=== PATIENT | female | born 2000 | race Caucasian/White ===

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

== ENCOUNTER 2022-12-10 22:41 | Emergency (ER) | payer MEDICAID, SELFPAY ==
[2022-12-10 22:48] VITALS: BP 129/74; PULSE 109; RESP 18; TEMP 36.5; O2SAT 100
--- NOTE | 2022-12-10 22:59 | ED.GENADUL_ITS ---
Discharge Plan Disposition Patient Disposition: Home Condition: Good Discharge Details Clinical Impression: Cellulitis of right lower extremity Primary Care Provider: Kathryn,Local ED Provider: Maude Danielle Home Meds and New Rx's Prescriptions: Continued norgestimate-ethinyl estradiol [Sprintec (28)] 0.25-35 mg-mcg tablet 1 tab PO DAILY Qty: 84 3RF albuterol sulfate 90 mcg/actuation Hfa Aerosol Inhaler 2 puff INHALATION DIRECTED PRN trazodone 50 mg Tablet 50 mg PO HS Discharge Instructions Instructions: Cellulitis (ED) Additional Instructions: At this time you have evidence of cellulitis infection of the skin on your right lower leg. The infection will likely improve with the antibiotic that you have been given and the prescription has been sent to your pharmacy. Please take this as directed. That being said there is always a chance that this could worsen. Please watch closely for spreading of the redness, worsening systemic symptoms of fever, chills or fatigue, or worsening pain. Please contact the surgery offices tomorrow for close follow-up. If you notice any worsening of your symptoms, or any new symptoms such as vomiting, diarrhea, fever, chills, shortness of breath, chest pain, numbness, weakness, or fainting , please return immediately to the emergency department for reevaluation. Please follow up with your primary care provider as soon as possible for reassessment and reevaluation. As always, it was a pleasure participating in your medical care today. Referrals: Bhargav Rivera MD [ CONSULTING PHYSICIAN] - Richmond Madrid MD [ [facility]] - Collin Sy MD [ [facility]] - Nilo Santo MD [ [facility]] - Discharge Data Discharge Date/Time-TO BE ENTERED AT DEPARTURE: 12/11/22 03:20 Medical Decision Making <MEGGAN Forbes - Last Filed: 12/19/22 20:07> Patient is a pleasant 22-year-old female presenting today with chief complaint of right knee pain and erythema. She reports that she injured her knee about 3 days ago when she caught it on a door in her kitchen. States that she has been trying to keep the wound clean since then. However, approximately 1 hour prior to arrival she noted a sudden onset of discomfort, swelling and warmth. States that she has been feeling febrile this afternoon but this too is a new finding for her. No previous surgeries or hardware in the knee. Denies being . Denies having infection like this historically. On exam, patient appears nontoxic. She is hemodynamically stable. She is slightly tachycardic heart rate of 109. Exam of the right lower extremity significant for erythematous right knee, particularly along the medial joint line more so than the lateral although she does have some ridging over to this area as well. She does have a small effusion. No palpable area of fluctuance. No palpable crepitus. She is 2+ distal pulses. Intact sensation. Small abrasion noted along the medial aspect of the knee, no signficantly deep wound. is able to extend lacking approximately 10 degrees, flexion to 90 With the patient's quick onset and significant discomfort as well as her fevers at home, the concerned that she may have developed necrotizing fasciitis, particularly as this developed over 1 hour. Patient does have palpable lymphadenopathy in the groin. The area of erythema does not allow for safe drainage of the knee for further evaluation of septic joint at this time. She does have pain that spreads proximally and in of the thigh. We will treat for worst-case scenario. She did take Tylenol and ibuprofen prior to arrival. Will obtain imaging to evaluate for possible necrotizing fasciitis or complicating joint infection such as abscess. Discussed this plan with the patient who is in agreement. Labs reviewed. No leukocytosis. Stable H&H. Her ESR slightly elevated at 26, CRP elevated at 2.03. Lactate within normal limits. Procalcitonin is pending. Patient going now for CT imaging. POC negative A the end of my shift, care transition to Dr. Fontaine. Imaging and disposition pending. <Candido Fontaine, DO - Last Filed: 12/11/22 02:19> Patient is a pleasant 22-year-old female presenting today with chief complaint of right knee pain and erythema. She reports that she injured her knee about 3 days ago when she caught it on a door in her kitchen. States that she has been trying to keep the wound clean since then. However, approximately 1 hour prior to arrival she noted a sudden onset of discomfort, swelling and warmth. States that she has been feeling febrile this afternoon but this too is a new finding for her. No previous surgeries or hardware in the knee. Denies being . Denies having infection like this historically. On exam, patient appears nontoxic. She is hemodynamically stable. She is slightly tachycardic heart rate of 109. Exam of the right lower extremity significant for erythematous right knee, particularly along the medial joint line more so than the lateral although she does have some ridging over to this area as well. She does have a small effusion. No palpable area of fluctuance. No palpable crepitus. She is 2+ distal pulses. Intact sensation. Small abrasion noted along the medial aspect of the knee, no signficantly deep wound. is able to extend lacking approximately 10 degrees, flexion to 90 With the patient's quick onset and significant discomfort as well as her fevers at home, the concerned that she may have developed necrotizing fasciitis, particularly as this developed over 1 hour. Patient does have palpable lymphadenopathy in the groin. The area of erythema does not allow for safe drainage of the knee for further evaluation of septic joint at this time. She does have pain that spreads proximally and in of the thigh. We will treat for worst-case scenario. She did take Tylenol and ibuprofen prior to arrival. Will obtain imaging to evaluate for possible necrotizing fasciitis or complicating joint infection such as abscess. Discussed this plan with the patient who is in agreement. Labs reviewed. No leukocytosis. Stable H&H. Her ESR slightly elevated at 26, CRP elevated at 2.03. Lactate within normal limits. Procalcitonin is pending. Patient going now for CT imaging. POC negative A the end of my shift, care transition to Dr. Fontaine. Imaging and disposition pending. 2:07 AM Case was signed out to me by my colleague Maude Moreira. Please refer to HPI, physical exam, assessment and plan. On reassessment patient is feeling much better. Blood pressure normal, heart rate normal, no evidence of sepsis clinically. She is afebrile. Laboratory work-up demonstrates no white count, bandemia or left shift. ESR is minimally elevated at 26, CRP is mildly elevated at 2, procalcitonin is normal, electrolytes normal, lactate normal. CT scan r esults have returned and shows evidence of mild subcutaneous fat stranding in the prepatellar location, there is an ill-defined hypoattenuation of intramuscular fluid collection which cannot be measured. No evidence of gas. I did contact the radiologist and discussed this with them further personally, they mention that they do not see any evidence of abscess, or definable fluid collection but do see some slight changes in the musculature. No clear evidence of necrotizing fasciitis whatsoever. I did contact the surgeon as well, Dr. Rivera. She did review the images and she also does not see any evidence of fluid collection or symptoms on imaging suggestive of necrotizing fasciitis. I did go and reassess the patient myself. Reassessment shows evidence of erythema around the medial aspect of the knee which has not past the marked borders performed by Maude Moreira. There is a clear distinction of the mild swelling mild pain in the distal aspect of the quadriceps, and clearly not in the knee itself. Patient is able to bend and flex the knee and does not demonstrate pain in the joint, she is able to describe this very clearly. The pain seems to be located in the muscle itself. Without being said the pain is improved, the patient feels well and stable otherwise. Repeat tactile exam continues to show no evidence of subcutaneous crepitus. Pain is not out of proportion. At this time the patient does not show clinical evidence to suggest necrotizing fasciitis, intramuscular abscess requiring drainage, or sepsis. However she does demonstrate evidence of mild cellulitis and what I feel is likely the very beginnings of an early infection. She is already being given vancomycin, Zosyn and clindamycin by Maude. I do not see an indication at this time for admission but I do feel that at this time both clinically and from a laboratory and work- up perspective she is stable clinically at this time for discharge but requires close and prompt follow-up. I discussed this with Dr. Rivera and she agrees with plan for close follow-up in the clinic. I had a very long discussion with the patient regarding signs and symptoms that would represent systemic illness, worsening infection, and we also discussed symptoms that could represent necrotizing fasciitis, even though she does not show any clinical symptomatology of that at this time. I did discuss continued observation versus discharge, and states clearly that she would prefer to go home at this time. Patient will be discharged. We will give a prescription for clindamycin as well as a small bottle for current dose now. Discussed red flags for which to return. I have extensively reviewed the treatment plan and discharge instructions with the patient. I have addressed all patient concerns at this time. The patient was made aware of what symptoms to monitor for that would warrant a return to the emergency department. Discussed the plan with the patient, they demonstrate verbal understanding and agreement with our assessment and plan at this time. The documentation in this chart was dictated using Echo[employer] dictation software. Please excuse any dictation errors. FINDINGS: Bones/joints: Normal. No acute fracture or dislocation. Soft tissues: There is mild subcutaneous fat stranding in the prepatellar loc ation, with evidence of skin thickening. Within the medial aspect of the visualized quadriceps muscu lature there is an illdefined hypoattenuating intramuscular fluid collection which cannot be accurately measured. The possibility of intramuscular abscess cannot be excluded. IMPRESSION: 1. There is mild subcutaneous fat stranding in the prepatellar location, with evidence of skin thickening. 2. Within the medial aspect of the visualized quadriceps musculature there is an ill-defined hypoattenuating intramuscular fluid collection which cannot be accurately measured. The possibility of intramuscular abscess cannot be excluded. Thank you for allowing us to participate in the care of your patient. Dictated and Authenticated by: Willam Mccrary MD 12/11/2022 1:25 AM Eastern Time ([place] & [place]) HPI <MEGGAN Forbes - Last Filed: 12/19/22 20:07> General Date/Time Provider Initiated Documentation: 12/10/22 22:59 . Limitations to Documentation: no limitations . Information obtained by: patient and RN notes reviewed . History of Present Illness 22 year old F presents to the emergency department with the chief complaint of swelling, erythema, warmth, pain right knee, described as severe, with intensity rated at 7. Quality is described as aching, and is localized to the right and lower extremity. Patient reports no radiation. Patient started experiencing this hour(s) (initial injury. 3 days ago, states that swelling and erythema started fairly rrarpidly) and it has been constant. Immobilization improves symptom(s), Movement worsens symptoms . Patient notes fever/chills, malaise and rash; denies cough, diaphoresis, nausea/vomiting, shortness of breath and weakness. Patient did receive the following treatments prior to arrival, NSAID Related Data Home Medications Medication Instructions Recorded Confirmed trazodone 50 mg tablet 50 mg PO HS 01/22/20 11/02/20 albuterol sulfate 90 mcg/actuation 2 puff inhalation DIRECTED PRN 04/01/20 09/12/20 aerosol inhaler norgestimate 0.25 mg-ethinyl 1 tab PO DAILY #84 tabs 09/12/20 09/12/20 estradiol 35 mcg tablet (Sprintec (28)) Previous Rx's Medication Instructions Recorded norgestimate 0.25 mg-ethinyl 1 tab PO DAILY #84 tabs 09/12/20 estradiol 35 mcg tablet (Sprintec (28)) Allergies Allergy/AdvReac Type Severity Reaction Status Date / Time No Known Allergies Allergy Verified 04/01/20 19:46 General Stated Complaint: Orthopedic CHEL: 3 Review of Systems <MEGGAN Forbes - Last Filed: 12/19/22 20:07> Constitutional Constitutional: Reports as per HPI, Denies headache(s) and Denies weakness ENT Ears, Nose, Mouth, and Throat: Denies headache(s) Cardiovascular Cardiovascular: Reports as per HPI Respiratory Respiratory: Reports as per HPI and Denies cough Musculoskeletal Musculoskeletal: Reports as per HPI and Denies tingling Integumentary/Breasts Skin/Breast: Reports as per HPI Neurologic Neurologic: Reports as per HPI, Denies headache(s), Denies tingling, Denies par esthesias and Denies weakness PFS <MEGGAN Forbes - Last Filed: 12/19/22 20:07> All Active Problems (Updated 12/11/22 @ 02:15 by Candido Fontaine DO) Cellulitis of right lower extremity (Acute) Fatigue (Acute) Dysuria (Acute) Contraception (Acute) Frequent headaches (Acute 12/15/15) Medical History (Updated 12/11/22 @ 02:15 by Candido Fontaine DO) Contraception requests Nexplanon. Depression On Fluoxetine Headache Family History Father Hyperlipidemia Hypertension Mother Depression Social History Smoking/Tobacco Use Status: Current every day Tobacco Type: cigarettes Smoking risk assessment performed?: Yes Alcohol Intake: never Drug use: Never Substance use type: does not use Do you feel safe at home: Yes Do you feel safe in your relationship?: Yes Female Reproductive History Menstrual control method: condoms History History 0 Para Hx # Term Pregnancies Multiple births Hx # Pregnancies Ectopic pregnancies AB induced Hx Number of Living Children AB spontaneous Exam <MEGGAN Forbes - Last Filed: 12/19/22 20:07> Const General: cooperative, healthy appearing, comfortable, no acute distress, well developed and well groomed Nutritional Appearance: average body habitus and well nourished Orientation: alert and awake Resp Effort & Inspection: normal respiratory effort, able to speak in complete sentences and no respiratory distress Cardio Rate: regular rate Rhythm: regular rhythm Skin General skin exam: erythema and no fluctuance Trauma: abrasion Neuro General: patient alert and patient awake Cognition: normal cognition Speech: speech normal Gait: normal gait Motor: muscle tone normal throughout Sensory Exam: no sensory deficits noted Extrem Knee images: 1. ARea of erytehma, warmth, swelling. Small effusion noted. Limited flexion bu tfull extension. 2+ distal pulses, sensation intact. Full ROM of ankle, toes. No calf pain, no palpable cord, negative Hommans. Small abrasion. No surrrounding ecchymosis. Psych Appearance: grossly normal and well kempt Mental Status: mental status grossly normal Speech and Movement: speech and movement normal Course <MEGGAN Forbes - Last Filed: 12/19/22 20:07> Vital Signs Vital signs: Vital Signs Temperature 36.5 C 12/10/22 22:48 Pulse 109 H 12/10/22 22:48 Respiratory Rate 18 12/10/22 22:48 Blood Pressure 129/74 12/10/22 22:48 Pulse Oximetry 100 12/10/22 22:48 Temperature 36.5 C 12/10/22 22:48 Pulse 109 H 12/10/22 22:48 Respiratory Rate 18 12/10/22 22:48 Respiratory Effort 12/10/22 22:56 Blood Pressure 129/74 12/10/22 22:48 Blood Pressure Position Sitting 12/10/22 22:48 Pulse Oximetry 100 12/10/22 22:48 Oxygen Delivery Method Room Air 12/10/22 22:48 Oxygen Flow Rate 0 12/10/22 22:48 Pain Level 7 12/10/22 22:48
--- NOTE | 2022-12-10 23:15 | DI.CT_ITS ---
Exam(s) CT LOWER EXTREMITY RT W EXAM: CT LOWER EXTREMITY RT W CLINICAL HISTORY: right knee infection. TECHNIQUE: Imaging Protocol: Axial computed tomography images with coronal and sagittal reformatted images were created and reviewed. CONTRAST MATERIAL: Intravenous: Omnipaque 350. Contrast Volume: 100 ML COMPARISON: No exams were available for comparison FINDINGS: Bones: The osseous structures and articular surfaces are intact. Bony alignment is satisfactory. N o cellulitic or osteomyelitic changes are identified. There is no evidence of joint space narrowing or cystic degeneration seen. No lytic or sclerotic lesions are identified. Soft Tissues: There is fat stranding in the prepatellar soft tissues. There is mild skin thickening note is in this region. There is an area of decreased attenuation in the quadriceps musculature samaria cent to the patella. No definite wall enhancement is seen but an abscess cannot be entirely excluded . Enhancement: No abnormal enhancement is identified. IMPRESSION: 1. Mild fat stranding and skin thickening in the prepatellar soft tissues. This may represent a cell ulitis. 2. Area of decreased attenuation in the quadriceps muscle adjacent to the patella. A small intramusc ular abscess cannot be excluded. RADIATION DOSE DELIVERED: 232.46mGy.cm Total DLP 232.46mGy.cm Total DLP DATA REPOSITORY: All CT scans at this facility are submitted to the National Radiology Data Registry (NRDR) Dose Index Registry (DIR) with the [employer] ([employer]). RADIATION OPTIMIZATION: All CT scans at this facility use at least one of these dose optimization te chniques: automated exposure control; mA and/or kV adjustment per patient size (includes targeted exa ms where dose is matched to clinical indication); or iterative reconstruction.
[2022-12-11 00:09] LABS: Lactate 0.9 mmol/L (0.6-1.4)
[2022-12-11] MEDS: PIPERACILLIN/TAZO 3.375 GM in Normal Saline 50 ML IVPB (00:15)
[2022-12-11 00:17] LABS: Abs Immature Grans 0.02 10^3/uL (0.0-0.06); Absolute Basophil Count 0.03 10^3/uL (0.0-0.2); Absolute Eosinophil Count 0.29 10^3/uL (0.0-0.7); Absolute Lymphocyte Count 2.76 10^3/uL (1.2-3.4); Absolute Monocyte Count 0.83 10^3/uL (0.1-0.8); Absolute Neutrophil Count 5.23 10^3/uL (1.2-6.7); Basophils % 0.3; Eosinophils % 3.2; HCT 44.7 % (36.0-46.0); Immature Grans % 0.2; Lymphocytes % 30.1; MCH 31.6 pg (27.0-33.0); MCHC 33.6 % (32.0-36.0); MCV 94 fL (80-95); MPV 9.6 fL (8.0-11.0); Monocytes % 9.1; Neutrophils % 57.1; Platelet Count 233 10^3/uL (130-400); RBC 4.75 10^6/uL (3.93-5.22); RDW 11.9 % (11.7-14.6); RDW-SD 41.1 fL; WBC 9.16 10^3/uL (4.4-10.8)
[2022-12-11 00:20] LABS: ESR 26 mm/hr (0-20)
[2022-12-11 00:27] LABS: ALT 22 U/L (14-59); AST 22 U/L (15-37); Albumin 3.8 g/dL (3.4-5.0); Alkaline Phosphatase 84 U/L (46-116); BUN 12 mg/dL (7-18); Bilirubin, Total 0.3 mg/dL (0.2-1.0); C-Reactive Protein 2.03 mg/dL (0.0-0.3); CREATININE 0.7 mg/dL (0.55-1.02); Calcium 9.3 mg/dL (8.5-10.1); Chloride 100 mmol/L (98-107); Estimated GFR 126.11 (mL/min/1.73m2); Glucose 92 mg/dL (74-106); Potassium 3.6 mmol/L (3.5-5.1); Sodium 139 mmol/L (136-145); Total Protein 7.8 g/dL (6.4-8.2)
[2022-12-11] MEDS: Normal Saline 1,000 ML 1000 ML IV (00:39)
[2022-12-11] MEDS: Omnipaque 350 MG/ML 100 ML BTL IJ (00:55)
[2022-12-11 00:59] LABS: Procalcitonin < 0.1 ng/mL
[2022-12-11] MEDS: Normal Saline - Diluent 50 ML VIAL IJ (01:02)
[2022-12-11] MEDS: CLINDAMYCIN 600 MG/50 ML BAG 100 MG IVPB (01:19)
[2022-12-11] MEDS: VANCOMYCIN 750 MG in Normal Saline 250 ML 166.6666 MG IVPB (01:20)
--- NOTE | 2022-12-11 01:25 | DI.VRAD_ITS ---
Addendum created by Willam Mccrary MD on 12/11/2022 1:34:43 AM EST: Findings were discussed with Dr. Fontaine at 12/11/2022 1:34 AM EST. Initial report created on 12/11/2022 1:25:16 AM EST: PROCEDURE INFORMATION: Exam: CT Right Lower Extremity With Contrast, Knee Exam date and time: 12/11/2022 12:53 AM Age: 22 years old Clinical indication: Swelling or effusion of joint and other: Right knee infection TECHNIQUE: Imaging protocol: CT of the Right lower extremity with intravenous contrast was performed. Exam focused on the knee. Radiation optimization: All CT scans at this facility use at least one of these dose optimization techniques: automated exposure control; mA and/or kV adjustment per patient size (includes targeted exams where dose is matched to clinical indication); or iterative reconstruction. Contrast material: OMNI 350; Contrast volume: 100 ml; Contrast route: INTRAVENOUS (IV); COMPARISON: No relevant prior studies available. FINDINGS: Bones/joints: Normal. No acute fracture or dislocation. Soft tissues: There is mild subcutaneous fat stranding in the prepatellar location, with evidence of skin thickening. Within the medial aspect of the visualized quadriceps musculature there is an ill-defined hypoattenuating intramuscular fluid collection which cannot be accurately measured. The possibility of intramuscular abscess cannot be excluded. IMPRESSION: 1. There is mild subcutaneous fat stranding in the prepatellar location, with evidence of skin thickening. 2. Within the medial aspect of the visualized quadriceps musculature there is an ill-defined hypoattenuating intramuscular fluid collection which cannot be accurately measured. The possibility of intramuscular abscess cannot be excluded. Dictated and Authenticated by: Willam Mccrary MD. Ordering:ANALY Santoro MD
[2022-12-11 01:34] VITALS: BP 121/61; PULSE 85; RESP 18; TEMP 36.8; O2SAT 100
[2022-12-11] MEDS: Ketorolac 15 MG/ML VIAL IVP (02:27)
[2022-12-11 03:07] VITALS: BP 132/63; PULSE 78; RESP 16; TEMP 36.3; O2SAT 100
== END 2022-12-11 03:20 | disposition home or self-care (01) ==
PROVIDERS: Emergency Provider Physician Assistant
DX: L03.115 Cellulitis of right lower limb (principal); M25.561 Pain in right knee; S80.211A Abrasion, right knee, initial encounter; W22.03XA Walked into furniture, initial encounter; R50.9 Fever, unspecified
CPT/HCPCS: 80053; 81025; 84145; 85652; 87040; 87635; 96361; 96365; 96366; 96367; 96368; 96375; 99285; 73701; 83605; 85025; 86140; 99284; J1885; J2543; J3490

== ENCOUNTER 2023-06-18 17:44 | Emergency (ER) | payer MEDICAID, SELFPAY ==
[2023-06-18 18:10] VITALS: BP 131/80; PULSE 110; RESP 16; TEMP 36.5; O2SAT 95
[2023-06-18 18:13] LABS: Bilirubin Negative (Negative); Blood Trace-intact (Negative); Clarity Cloudy (Clear); Glucose Negative (Negative); Ketones Negative (Negative); Leukocyte Esterase Large (Negative); Nitrite Negative (Negative); pH 8.5 (5-8)
[2023-06-18 18:20] LABS: Bacteria Many HPF (Negative); C & S Indicated? Yes; Casts Negative LPF (Negative); Crystals Negative HPF (Negative); Epithelial Cells Few HPF (Negative); Mucus Trace (Negative); RBC 0-2 HPF (0-2); WBC 20-50 HPF (0-5)
== END 2023-06-18 19:40 | disposition left against medical advice (07) ==
LOC: ER 17:50
PROVIDERS: Emergency Provider Emergency Medicine
DX: Z53.21 Procedure and treatment not carried out due to patient leaving prior to being seen by health care provider (principal)
CPT/HCPCS: 81003; 81015; 87086

== ENCOUNTER 2023-07-13 05:05 | Emergency (ER) | payer MEDICAID, SELFPAY ==
[2023-07-13 05:11] VITALS: BP 109/54; PULSE 107; RESP 18; TEMP 36.3; O2SAT 98
--- NOTE | 2023-07-13 05:20 | ED.GENADUL_ITS ---
Discharge Plan Disposition Patient Disposition: Home Condition: Improving Discharge Details Clinical Impression: Avulsed toenail Primary Care Provider: None,None ED Provider: Eagle Layton Meds and New Rx's Prescriptions: Continued albuterol sulfate 90 mcg/actuation Hfa Aerosol Inhaler 2 puff INHALATION DIRECTED PRN Discharge Instructions Instructions: Nail Avulsion (ED) Discharge Data Discharge Date/Time-TO BE ENTERED AT DEPARTURE: 07/13/23 05:42 Discharge Physician: Eagle Layton Medical Decision Making Patient who sustained trauma to her foot with a ablation of her left fifth toe nail there is no laceration of the nailbed and she will be put on the dressing and discharged home HPI General Date/Time Provider Initiated Documentation: 07/13/23 05:20 . HPI Narrative: Patient presents emergency department after she tripped on the stairs and sustained a nail avulsion of her left pinky toe and bleeding Related Data Home Medications Medication Instructions Recorded Confirmed albuterol sulfate 90 mcg/actuation 2 puff inhalation DIRECTED PRN 04/01/20 06/18/23 aerosol inhaler Allergies Allergy/AdvReac Type Severity Reaction Status Date / Time No Known Allergies Allergy Verified 06/18/23 18:15 General Stated Complaint: Orthopedic CHEL: 3 Review of Systems Narrative: Review of Systems: Constitutional: No fevers, chills, sweats Eye: No recent visual problems ENT: No ear pain, nasal congestion, sore throat Respiratory: No shortness of breath, cough Cardiovascular: No Chest pain, palpitations, syncope Gastrointestinal: No nausea, vomiting, diarrhea Genitourinary: No hematuria Binh/Lymph: Negative for bruising tendency, swollen lymph glands Endocrine: Negative for excessive thirst, excessive hunger Musculoskeletal: No back pain, neck pain, joint pain, muscle pain, decreased range of motion Integumentary: No rash, pruritus, abrasions Neurologic: Alert & oriented X 4 Psychiatric: No anxiety, depression PFSH All Active Problems Avulsed toenail (Acute) Fatigue (Acute) Dysuria (Acute) Contraception (Acute) Frequent headaches (Acute 12/15/15) Medical History Contraception requests Nexplanon. Depression On Fluoxetine Headache Family History Father Hyperlipidemia Hypertension Mother Depression Social History Smoking/Tobacco Use Status: Current every day Tobacco Type: cigarettes Smoking risk assessment performed?: Yes Alcohol Intake: never Drug use: Current Sobriety Substance use type: marijuana Housing: homeless Do you feel safe at home: Yes Do you feel safe in your relationship?: Yes Female Reproductive History Menstrual control method: condoms History History 0 Para Hx # Term Pregnancies Multiple births Hx # Pregnancies Ectopic pregnancies AB induced Hx Number of Living Children AB spontaneous Exam Narrative Exam Narrative: Exam; vitals signs as reported above normal Constitutional; In no acute distress, afebrile General: cooperative, healthy appearing, comfortable and no acute distress HEENT: Head: normal to inspection, no palpable skull fracture and normocephalic atraumatic Eyes: : appearance normal, both eyes and all related structures EOM intact bilaterally Pupils: PERRL : conjunctiva normal Direct ophthalmoscopy: normal light reflex, normal conjunctiva, normal visual acuity Ears: Normal TM, normal external canal Neck no JVD, supple non tender Neck: normal visual inspection, full ROM and no lymphadenopathy Chest: normal inspection of the chest Respiratory : normal respiratory effort and able to speak in complete sentences no wheezing no rales Cardio Rate: regular rate, rhythm: regular rhythm normal heart sounds S1 and S2 no murmurs, gallops, or rubs GI : normal to inspection, normal bowel sounds, soft, non tender, non distended, no organomegaly Back/Spine/ no CVA tenderness Thoracic/Lumbar Spine: no tenderness or deformities Skin no rashes or lesions Neuro: patient alert and no meningeal signs, Cranial Nerves: CN's II-XI intact bilaterally, Cognition: normal cognition, Speech: speech normal, Gait: normal gait, Depp tendon reflexes normal 2+ muscle strength 5/5 bilaterally Extremities, no edema, full range of motion, normal strength left fifth toe with a nail avulsion and bleeding nail is missing no laceration of the nailbed Course Vital Signs Vital signs: Vital Signs Temperature 36.3 C L 07/13/23 05:11 Pulse 107 H 07/13/23 05:11 Respiratory Rate 18 07/13/23 05:11 Blood Pressure 109/54 L 07/13/23 05:11 Pulse Oximetry 98 07/13/23 05:11 Temperature 36.3 C L 07/13/23 05:11 Temperature Source Oral 07/13/23 05:11 Pulse 107 H 07/13/23 05:11 Respiratory Rate 18 07/13/23 05:11 Blood Pressure 109/54 L 07/13/23 05:11 Pulse Oximetry 98 07/13/23 05:11 Oxygen Delivery Method Room Air 07/13/23 05:11 Oxygen Flow Rate 0 07/13/23 05:11
== END 2023-07-13 05:42 | disposition home or self-care (01) ==
PROVIDERS: Emergency Provider Emergency Medicine Emergency Medical Services
DX: S91.205A Unspecified open wound of left lesser toe(s) with damage to nail, initial encounter (principal); W22.09XA Striking against other stationary object, initial encounter; Y93.01 Activity, walking, marching and hiking; Y92.018 Other place in single-family (private) house as the place of occurrence of the external cause; Y99.9 Unspecified external cause status
CPT/HCPCS: 99282

== ENCOUNTER 2023-11-30 04:43 | Emergency (ER) | payer SELFPAY ==
[2023-11-30 04:58] VITALS: BP 130/70; PULSE 91; RESP 18; TEMP 36.7; O2SAT 99
--- NOTE | 2023-11-30 05:07 | ED.GENADUL_ITS ---
HPI General Date/Time Provider Initiated Documentation: 11/30/23 04:46 . HPI Narrative: 23-year-old female presents today for removal of a ring on her left nondominant hand on the index finger. Patient states that yesterday she accidentally slammed the finger against the wall and has had some swelling and pain over the PIP joint. She attempted multiple ways to get the ring off but was unsuccessful. She presents here for removal. No other complaints at this time. She does have mild pain when moving the finger. Related Data Home Medications Medication Instructions Recorded Confirmed albuterol sulfate 90 mcg/actuation 2 puff inhalation DIRECTED PRN 04/01/20 06/18/23 aerosol inhaler Allergies Allergy/AdvReac Type Severity Reaction Status Date / Time No Known Allergies Allergy Verified 06/18/23 18:15 General Stated Complaint: Orthopedic CHEL: 4 Review of Systems All systems reviewed & are unremarkable except as noted in HPI and below Exam Narrative Exam Narrative: 1.Const: Well-nourished, Well-developed, appearing stated age 2.Eyes: PERRL, no conjunctival injection, and symmetrical lids. 3.ENT: Atraumatic external nose and ears. Moist MM. Neck: Symmetric, trachea midline, No thyromegaly. 4.CVS: +S1/S2, No murmurs or gallops. Peripheral pulses 2+ and equal in all extremities. Brisk capillary refill in all extremities. 5.RESP: Unlabored respiratory effort. Clear to auscultation bilaterally. No wheezes rales or rhonchi 6.GI: Soft, Nontender/Nondistended, No hepatosplenomegaly. No guarding or rebound. 7.MSK: Normocephalic, patient demonstrates very mild amount of swelling over the PIP joint of the index finger on the left hand. No redness to suggest infection. No atypical warmth. Good range of motion with normal flexion and extension at the PIP, DIP, and MCP joints. No evidence of flexor or extensor tenosynovitis. 8.Skin: Warm, Dry. Multiple small picking like lesions over the face and arms are noted. 9.Neuro: [employer] II-XII grossly intact. Sensation grossly intact, no focal neurologic deficits. 10.Psych: (AAO) x3. Appropriate mood and affect Course Vital Signs Vital signs: Vital Signs Temperature 36.7 C 11/30/23 04:58 Pulse 91 H 11/30/23 04:58 Respiratory Rate 18 11/30/23 04:58 Blood Pressure 130/70 11/30/23 04:58 Pulse Oximetry 99 11/30/23 04:58 Temperature 36.7 C 11/30/23 04:58 Temperature Source Skin 11/30/23 04:58 Pulse 91 H 11/30/23 04:58 Respiratory Rate 18 11/30/23 04:58 Respiratory Effort Normal 11/30/23 05:01 Blood Pressure 130/70 11/30/23 04:58 Blood Pressure Position Sitting 11/30/23 04:58 Pulse Oximetry 99 11/30/23 04:58 Oxygen Delivery Method Room Air 11/30/23 04:58 Oxygen Flow Rate 0 11/30/23 04:58 Pain Level 8 11/30/23 05:02 Procedures Foreign Body Removal Time Out Performed: yes Site: left and hand Description of foreign body: other (Ring) Sedation/Analgesia: none Technique: other (Ring cutter device) Confirmed by:: direct visualization Complications: none Post-procedure exam: awake, alert, normal BP, normal HR and normal O2 sat Neurovascular: normal distal pulse, normal capillary fill, distal light touch sensation intact, distal motor function normal and no signs of compartment syndrome Medical Decision Making 23-year-old female presents today for removal of a ring on her left nondominant hand on the index finger. Patient states that yesterday she accidentally slammed the finger against the wall and has had some swelling and pain over the PIP joint. She attempted multiple ways to get the ring off but was unsuccessful. She presents here for removal. No other complaints at this time. She does have mild pain when moving the finger. Exam demonstrates mild swelling around the knuckle. Unable to remove the ring with gel or gentle distraction. Offered other techniques to the patient, however her preference was to have the ring cut. Ring was cut with ring cutter device without complication. Patient tolerated this well. Offered x-ray for the patient's finger to rule out fracture, patient has respectfully declined. Offered to splint, and patient has excepted. Patient will be splinted. Recommend NSAIDs at home as needed. Discussed red flags for which to return. I have extensively reviewed the treatment plan and discharge instructions with the patient. I have addressed all patient concerns at this time. The patient was made aware of what symptoms to monitor for that would warrant a return to the emergency department. Discussed the plan with the patient, they demonstrate verbal understanding and agreement with our assessment and plan at this time. The documentation in this chart was dictated using hoohbe dictation software. Please excuse any dictation errors. Quality:SDOH Health Related Social Needs: No Data to Display PFSH All Active Problems (Updated 11/30/23 @ 05:08 by Candido Fontaine DO) Contusion of left index finger (Acute) Fatigue (Acute) Dysuria (Acute) Contraception (Acute) Frequent headaches (Acute 12/15/15) Medical History Contraception requests Nexplanon. Depression On Fluoxetine Headache Family History Father Hyperlipidemia Hypertension Mother Depression Social History Smoking/Tobacco Use Status: Current every day Tobacco Type: cigarettes Smoking risk assessment performed?: Yes Alcohol Intake: never Drug use: Current Sobriety Substance use type: marijuana Housing: homeless Do you feel safe at home: Yes Do you feel safe in your relationship?: Yes Female Reproductive History Menstrual control method: condoms History History 0 Para Hx # Term Pregnancies Multiple births Hx # Pregnancies Ectopic pregnancies AB induced Hx Number of Living Children AB spontaneous Discharge Plan Disposition Patient Disposition: Home Condition: Good Discharge Details Chief Complaint: Orthopedic Clinical Impression: Contusion of left index finger Primary Care Provider: Unknown,Unknown ED Provider: Candido Fontaine Meds and New Rx's Prescriptions: No Action albuterol sulfate 90 mcg/actuation Hfa Aerosol Inhaler 2 puff INHALATION DIRECTED PRN Discharge Instructions Instructions: Finger Fracture (ED) Additional Instructions: At this time I suspect you have a small fracture in your finger. Please keep the splint on for the next 1 to 2 weeks. Take Tylenol and Motrin as needed for pain. If you notice any worsening of your symptoms, or any new symptoms such as vomiting, diarrhea, fever, chills, shortness of breath, chest pain, numbness, weakness, or fainting , please return immediately to the emergency department for reevaluation. Please follow up with your primary care provider as soon as possible for reassessment and reevaluation. As always, it was a pleasure participating in your medical care today.
== END 2023-11-30 05:12 | disposition home or self-care (01) ==
PROVIDERS: Emergency Provider Student in an Organized Health Care Education/Training Program
DX: S60.022A Contusion of left index finger without damage to nail, initial encounter (principal); W22.8XXA Striking against or struck by other objects, initial encounter
CPT/HCPCS: 29130; 99283

== ENCOUNTER 2025-02-25 21:17 | Emergency (ER) | payer SELFPAY ==
[2025-02-25 21:20] VITALS: BP 104/45; PULSE 102; RESP 18; TEMP 37.2; O2SAT 99
[2025-02-25 21:23] VITALS: BP 104/45; PULSE 102; RESP 18; TEMP 37.2; O2SAT 99
--- NOTE | 2025-02-25 22:06 | W.ED.GENAD ---
Discharge Plan Disposition Patient Disposition: Home Condition: Stable Discharge Details Clinical Impression: Cellulitis, Opioid use disorder Primary Care Provider: None,None ED Provider: Carol Otoole Home Meds and New Rx's Prescriptions: New sulfamethoxazole-trimethoprim [Bactrim DS] 800-160 mg tablet 1 tab PO BID 6 Days Qty: 12 0RF cephalexin 500 mg capsule 500 mg PO QID 6 Days Qty: 24 0RF No Action albuterol sulfate 90 mcg/actuation Hfa Aerosol Inhaler 2 puff INHALATION DIRECTED PRN Discharge Instructions Instructions: Cellulitis (Skin Infection), Adult ED Additional Instructions: You were seen in the ED for skin lesions with infection, likely due to Xylazine. We offered you laboratory studies which you have declined. We are starting you on antibiotics and referring you to establish with primary care. Take all of the antibiotics until they are gone, even if you feel better. Thank you for allowing us to be part of your care. HPI General Mode of arrival: ambulatory. Date/Time Provider Initiated Documentation: 02/25/25 21:25. Limitations to Documentation: no limitations. Information obtained by: patient and old records reviewed. HPI Narrative: The patient presents for evaluation of leg wounds. She has been managing these wounds for the past 4 months, which have progressively worsened over the past week. Despite her efforts to maintain cleanliness and apply bandages, the condition has deteriorated. She reports no fever at home and maintains adequate food and fluid intake. She reports no history of sepsis or bacteremia. She reports no numbness or tingling in her feet but notes occasional drainage from the wounds. She reports no pain or wounds elsewhere on her body and considers herself generally healthy. She has no history of MRSA infection and currently resides with a friend where she can safely perform wound care. She does not have a primary care physician. Her home care regimen includes washing the wounds, soaking them in Epsom salt, applying triple antibiotic ointment, and changing the bandages regularly. She also took clindamycin 3 months ago for a duration of 10 days, which initially improved the condition but the symptoms recurred after completing the course. She reports no occupational hazards or use of needles that could potentially cause skin breakage. She admits to smoking fentanyl but reports no other substance use. She knows that she has had exposure to Xylazine. Related Data Home Medications ?Medication ?Instructions ?Recorded ?Confirmed albuterol sulfate 90 mcg/actuation 2 puff inhalation DIRECTED PRN 04/01/20 02/25/25 aerosol inhaler cephalexin 500 mg capsule 500 mg PO QID 6 days #24 caps 02/25/25 sulfamethoxazole 800 1 tab PO BID 6 days #12 tabs 02/25/25 mg-trimethoprim 160 mg tablet (Bactrim DS) Previous Rx's ?Medication ?Instructions ?Recorded cephalexin 500 mg capsule 500 mg PO QID 6 days #24 caps 02/25/25 sulfamethoxazole 800 1 tab PO BID 6 days #12 tabs 02/25/25 mg-trimethoprim 160 mg tablet (Bactrim DS) Allergies Allergy/AdvReac Type Severity Reaction Status Date / Time No Known Allergies Allergy Verified 06/18/23 18:15 General Stated Complaint: Cellulitis CHEL: 3 Exam Narrative Exam Narrative: General Appearance: Awake and alert. HEENT: Non-icteric sclera, PERRL. Respiratory: No apparent respiratory distress, normal respiratory effort. Cardiovascular: Heart with regular rate and rhythm at the time of this providers exam. No murmurs auscultated. Gastrointestinal: Non-distended. Extremities/Skin: Numerous wounds and ulcerations to left lower extremity and right ankle, with surrounding redness, induration, and swelling. CSM's intact and symmetrical distal to the wounds. Neurological: No obvious focal deficits or facial asymmetry. Speaks in full, clear sentences. Normal gait. Psychiatric: Appropriate for situation. Course Vital Signs Vital signs: Vital Signs Temperature 37.2 C 02/25/25 21:20 Pulse 102 H 02/25/25 21:20 Respiratory Rate 18 02/25/25 21:20 Blood Pressure 104/45 L 02/25/25 21:20 Pulse Oximetry 99 02/25/25 21:20 Temperature 37.2 C 02/25/25 21:23 Pulse 102 H 02/25/25 21:23 Respiratory Rate 18 02/25/25 21:23 Blood Pressure 104/45 L 02/25/25 21:23 Blood Pressure Position Sitting 02/25/25 21:23 Pulse Oximetry 99 02/25/25 21:23 Oxygen Delivery Method Room Air 02/25/25 21:23 Oxygen Flow Rate 0 02/25/25 21:23 Pain Level 8 02/25/25 21:23 Lab/Test Results Lab/Test Results: Laboratory Tests Range/Units 02/25/25 22:00 WBC Cancelled RBC Cancelled Hgb Cancelled Hct Cancelled MCV Cancelled MCH Cancelled MCHC Cancelled RDW Cancelled Plt Count Cancelled MPV Cancelled Immature Gran % Cancelled Neutrophils % Cancelled Band Neutrophils % Cancelled Lymphocytes % Cancelled Atypical Lymphs % Cancelled Monocytes % Cancelled Eosinophils % Cancelled Basophils % Cancelled Metamyelocytes % Cancelled Myelocytes % Cancelled Promyelocytes % Cancelled Other Cells % Cancelled Nucleated RBC % Cancelled Absolute Neutrophils Cancelled Absolute Lymphocytes Cancelled Absolute Monocytes Cancelled Absolute Eosinophils Cancelled Absolute Basophils Cancelled RBC Morphology Cancelled Polychromasia Cancelled Hypochromasia Cancelled Poikilocytosis Cancelled Basophilic Stippling Cancelled Anisocytosis Cancelled Microcytosis Cancelled Macrocytosis Cancelled Spherocytes Cancelled Tear Drop Cells Cancelled Ovalocytes Cancelled Stomatocytes Cancelled [place] Bodies Cancelled Jong Cells/Echinocytes Cancelled Acanthocytes (Spur) Cancelled Schistocytes Cancelled VBG Lactate Cancelled Sodium Cancelled Potassium Cancelled Chloride Cancelled Carbon Dioxide Cancelled Anion Gap Cancelled BUN Cancelled Creatinine Cancelled Est GFR (CKD-EPI 2020) Cancelled Glucose Cancelled Calcium Cancelled Magnesium Cancelled Total Bilirubin Cancelled AST Cancelled ALT Cancelled Alkaline Phosphatase Cancelled Total Protein Cancelled Albumin Cancelled Medical Decision Making This is a 24 y/o F presenting with lower extremity wounds. Differential includes but is not limited to cellulitis, abscess, considered sepsis, bacteremia. No physical exam evidence for endocarditis. Considered xylazine associated skin necrosis/infection. ED Course: - Reviewed patient's history and current condition. - Discussed home care measures including use of triple antibiotic ointment and bandages. - Recommended laboratory studies and blood cultures to rule out systemic infection. - Patient declined lab studies due to personal reasons. - Prescribed antibiotics to include Keflex QID and Bactrim BID x 7 days - Advised patient to take antibiotics with food and complete the full course even if symptoms improve. Clinical Impression: - cellulitis - Opioid use disorder Disposition: - Discharge: Patient to be discharged with prescription for antibiotics. - Follow-Up: Referral to primary care doctor for ongoing wound care and monitoring. MDM Components Evaluation: - Number of Differential Diagnoses or Management Options: Systemic infection - Amount and Complexity of Data Reviewed: Patient history, home care measures, recommendation for lab studies and blood cultures. - Risk of Complication and Morbidity or Mortality: High risk of systemic infection due to prolonged wound presence and worsening condition. Carol Otoole MD Patient consented to the use of MADELAINE for this patient encounter. Quality:SDOH Health Related Social Needs: No Data to Display PFSH All Active Problems (Updated 02/25/25 @ 22:09 by Carol Otoole MD) Opioid use disorder (Acute) Cellulitis (Acute) Fatigue (Acute) Dysuria (Acute) Contraception (Acute) Frequent headaches (Acute 12/15/15) Medical History Contraception requests Nexplanon. Depression On Fluoxetine Headache Family History Father Hyperlipidemia Hypertension Mother Depression Social History Smoking/Tobacco Use Status: Current every day Tobacco Type: cigarettes Smoking risk assessment performed?: Yes Alcohol Intake: never Drug use: Daily Substance use type: opiates and IV drugs Housing: homeless Do you feel safe at home: Yes Do you feel safe in your relationship?: Yes Female Reproductive History Menstrual control method: condoms History History 0 Para Hx # Term Pregnancies Multiple births Hx # Pregnancies Ectopic pregnancies AB induced Hx Number of Living Children AB spontaneous
[2025-02-25] MEDS: Sulfameth/Trimeth DS, 2 TABS/BTL 1 TAB PO (22:09)
[2025-02-25] MEDS: Cephalexin 500 MG CAP, 4 CAPS/BTL PO (22:10)
== END 2025-02-25 22:16 | disposition home or self-care (01) ==
PROVIDERS: Emergency Provider Emergency Medicine
DX: L03.116 Cellulitis of left lower limb (principal); L03.115 Cellulitis of right lower limb; F11.90 Opioid use, unspecified, uncomplicated; F17.210 Nicotine dependence, cigarettes, uncomplicated
CPT/HCPCS: 80053; 87040; 99283; 83605; 83735; 85025

== ENCOUNTER 2025-11-09 23:19 | Emergency (ER) | payer SELFPAY ==
[2025-11-09 23:22] VITALS: BP 97/57; PULSE 62; RESP 18; TEMP 36.2; O2SAT 98
--- NOTE | 2025-11-09 23:24 | ED.GENADUL_ITS ---
Discharge Plan Disposition Patient Disposition: Home Condition: Good Discharge Details Clinical Impression: Facial cellulitis Primary Care Provider: None,None ED Provider: Melecio Miranda Meds and New Rx's Prescriptions: New doxycycline hyclate 100 mg tablet 100 mg PO BID Qty: 18 0RF Continued albuterol sulfate 90 mcg/actuation Hfa Aerosol Inhaler 2 puff INHALATION DIRECTED PRN Discharge Instructions Instructions: Doxycycline, Cellulitis (Skin Infection), Adult ED Additional Instructions: You were seen for facial pain and swelling. This appears to be an infection/cellulitis but there is no suggestion of an abscess at this time. Continue to alternate ibuprofen with acetamiophen every 4 hours as discussed. You will be placed on an antibiotic to take twice a day for 10 days. Use warm compresses throughout the day. Return to ED for fever, worsening pain/swelling, difficulty breathing or swallowing, inability to open mouth. If no significant improvement in next 4-5 days follow up with PCP/Urgent Care/ED. Stand Alone Forms: Portal Information HPI General Mode of arrival: ambulatory . Date/Time Provider Initiated Documentation: 11/09/25 23:24 . Limitations to Documentation: no limitations . Information obtained by: patient and RN notes reviewed . HPI Narrative: Patient presents to ED with right sided facial pain and swelling. Patient first noticed problems within the last couple of days and reports that it seemed to start out as a pimple. It has become more painful, swollen. She has been able to squeeze out a little bit of drainage but for the most part it has been painful and hard. She denies having any dental pain, difficulty swallowing, difficulty breathing. She has been alternating ibuprofen with acetaminophen with decent pain control. She denies any fever that she is aware of. Related Data Home Medications ?Medication ?Instructions ?Recorded ?Confirmed albuterol sulfate 90 mcg/actuation 2 puff inhalation A S DIRECTED PRN 04/01/20 11/09/25 aerosol inhaler doxycycline hyclate 100 mg tablet 100 mg PO BID #18 ta bs 11/09/25 Previous Rx's ?Medication ?Instructions ?Recorded doxycycline hyclate 100 mg tablet 100 mg PO BID #18 ta bs 11/09/25 Allergies Allergy/AdvReac Type Severity Reaction Status Date / Time No Known Allergies Allergy Verified 06/18/23 18:15 General CHEL: 3 Exam Narrative Exam Narrative: Const: WDWN female in NAD. VS per triage. HEENT: NC/AT. Right facial swelling that starts at the corner/lateral portion of the upper lip and extends back towards the ear. Able to palpate a walnut size hard swelling between my fingers placed inside the mouth and outside over the face. There is no erythema. There is a small scabbed over area a little above the right corner of the mouth. Neck: Supple. Trachea midline. Lungs: Normal respiratory effort. Neuro: A+O x 3. Normal speech, mentation, gait. Cranial nerves II - XII grossly intact. No gross motor or sensory deficit. Medical Decision Making Patient presenting with facial pain and swelling. There is no erythema or warmth or fever but there is a small scabbed over area more or less central to the swelling where she states it seemed to start as a pimple. There has been very little drainage per the patient. There is no dental pain. There is no fluctuance at all, just a firm, hard walnut size swelling. I believe this is a facial cellulitis related to an infected pimple and there is no indication of abscess at this point. Patient will be started on doxycycline twice a day for 10 days. She is to continue alternating ibuprofen with acetaminophen for pain control and to continue applying warm compresses throughout the day. She should follow-up with primary care, urgent care, back here if she is not noticing improvement in 4 to 5 days. Return sooner if any significant worsening, fevers, other concerns. [facility] All Active Problems (Updated 11/09/25 @ 23:37 by Melecio Miranda MD) Facial cellulitis (Acute) Fatigue (Acute) Dysuria (Acute) Contraception (Acute) Frequent headaches (Acute 12/15/15) Medical History Contraception requests Nexplanon. Depression On Fluoxetine Headache Family History Father Hyperlipidemia Hypertension Mother Depression Social History Smoking/Tobacco Use Status: Current every day Tobacco Type: cigarettes Smoking risk assessment performed?: Yes Alcohol Intake: never Drug use: Daily Substance use type: opiates and IV drugs Housing: homeless Do you feel safe at home: Yes Do you feel safe in your relationship?: Yes Female Reproductive History Menstrual control method: condoms History History 0 Para Hx # Term Pregnancies Multiple births Hx # Pregnancies Ectopic pregnancies AB induced Hx Number of Living Children AB spontaneous
[2025-11-09 23:27] VITALS: BP 97/57; PULSE 62; RESP 18; TEMP 36.2; O2SAT 98
[2025-11-09 23:51] VITALS: BP 97/57; PULSE 62; RESP 18; TEMP 36.2; O2SAT 98
== END 2025-11-09 23:56 | disposition home or self-care (01) ==
LOC: ER 11-10 00:01
PROVIDERS: Emergency Provider Emergency Medicine
DX: L03.211 Cellulitis of face (principal)
CPT/HCPCS: 99283 ×2